=== PATIENT | male | born 1965 ===

== ENCOUNTER 2022-09-29 18:56 | Emergency (ER) | payer SELFPAY ==
[~2022-09-29] VITALS: Ht 190.5 cm; Wt 121.4 kg
[2022-09-29 19:08] VITALS: BP 102/56
== END 2022-09-29 19:48 | disposition left against medical advice (07) ==
LOC: ER 18:56
DX: R50.9 Fever, unspecified (principal); H93.12 Tinnitus, left ear; Z53.21 Procedure and treatment not carried out due to patient leaving prior to being seen by health care provider
CPT/HCPCS: 93005; 99281